=== PATIENT | female | born 1965 | race Caucasian/White ===

== ENCOUNTER 2018-06-06 13:57 | Outpatient (CLI) | payer BC, SELFPAY ==
[2018-06-06 15:53] LABS: Anion Gap 6.8 mmol/L (3-11); BUN 22 mg/dL (7-18); CO2 29.2 mmol/L (21.0-32.0); CREATININE 0.67 mg/dL (0.55-1.02); Calcium 8.7 mg/dL (8.5-10.1); Chloride 90 mmol/L (98-107); Glucose 83 mg/dL (70-100); Magnesium 2.1 mg/dL (1.8-2.4); Potassium 4.9 mmol/L (3.5-5.1); Sodium 126 mmol/L (136-145)
== END 2018-06-06 14:17 ==
PROVIDERS: PCP Family Medicine; Visit Provider Family Medicine
DX: R25.2 Cramp and spasm (principal); E89.0 Postprocedural hypothyroidism; I10 Essential (primary) hypertension; R53.82 Chronic fatigue, unspecified; I42.9 Cardiomyopathy, unspecified
CPT/HCPCS: 36415; 80048; 83735; 84443

== ENCOUNTER 2018-07-14 03:00 | Outpatient (CLI) | payer BC, SELFPAY ==
--- NOTE | 2018-07-21 11:08 | HOLTER_ITS ---
DATE OF DICTATION: July 21, 2018 48-hour study Baseline rhythm sinus. Rare single PAC. No SVT or atrial fibrillation. Rare single PVC. No VT. No bradycardia. SYMPTONS: Palpitations noted three times during sinus rhythm 85-148 bpm. Average heart rate 65 bpm.
== END 2018-07-14 03:20 ==
PROVIDERS: PCP Family Medicine; Visit Provider Internal Medicine Cardiovascular Disease
DX: R00.2 Palpitations (principal); I50.9 Heart failure, unspecified; I49.1 Atrial premature depolarization; I49.3 Ventricular premature depolarization
CPT/HCPCS: 93225

== ENCOUNTER 2018-07-17 09:00 | Outpatient (CLI) | payer BC, SELFPAY | END 2018-07-17 09:20 | PROVIDERS: PCP Family Medicine; Visit Provider Internal Medicine Cardiovascular Disease | DX: R00.2 Palpitations (principal); I50.9 Heart failure, unspecified; I49.1 Atrial premature depolarization; I49.3 Ventricular premature depolarization | CPT/HCPCS: 93226 ==

== ENCOUNTER 2018-07-22 00:27 | Outpatient (CLI) | payer BC, SELFPAY ==
--- NOTE | 2018-07-22 14:00 | MERGE_ITS ---
*[facility]* *[facility]* [address] [place] [address] Date of study: 07/22/2018 Transthoracic Echocardiography M-mode, complete 2D, complete spectral Doppler, and color Doppler *STUDY CONCLUSIONS* Summary: 1. Left ventricle: The cavity size was normal. Systolic function was normal. The estimated ejection fraction was 55-60%. Moderate hypokinesis of the inferolateral and apical myocardium. Diastolic parameters were normal for age. There was no evidence of elevated ventricular filling pressure by Doppler parameters. 2. Mitral valve: There was mild regurgitation. 3. Right ventricle: The cavity size was normal. Wall thickness was normal. Systolic function was normal. 4. Atrial septum: No defect or patent foramen ovale was identified. 5. Tricuspid valve: There was mild-moderate regurgitation. 6. Pulmonary arteries: Pulmonary systolic pressure was in the range of 25mm Hg to 35mm Hg. 7. Inferior vena cava: The vessel was patent and normal in size. The respirophasic diameter changes were in the normal range (greater than or equal to 50%), consistent with normal central venous pressure. *PATIENT PRESENTATION* Height: 157.5cm ((62in) ) S/D Pressure: 102 / 60 Weight: 56.7kg ((124.7lb) ) BSA: 1.58m^2 Test start time: 02:10 PM. Test stop time: 03:00 PM. 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 This study was interpreted by [facility]. Pertinent images and digital data are archived for permanent storage and are available for subsequent review. Comparison was made to the study of 03/13/2017. Study status: Routine. Transthoracic echocardiography. M-mode, complete 2D, complete spectral Doppler, and color Doppler. A Transthoracic Echocardiogram was performed. Scanning was performed from the parasternal, apical, subcostal, and suprasternal notch acoustic windows. Images were obtained using an [id number] cardiac ultrasound machine. Image quality was good. Study completion: The patient tolerated the procedure well. History: PMH: CHF palpitations i50.9, r00.2. *CARDIAC ANATOMY* Left ventricle: The cavity size was normal. Systolic function was normal. The estimated ejection fraction was 55-60%. Regional wall motion abnormalities: Moderate hypokinesis of the inferolateral and apical myocardium. The tissue Doppler parameters were abnormal. Diastolic parameters were normal for age. There was no evidence of elevated ventricular filling pressure by Doppler parameters. Aortic valve: Trileaflet. Doppler: There was no stenosis. There was no regurgitation. VTI ratio of LVOT to aortic valve: 0.82. Valve area (VTI): 2.8cm^2. Indexed valve area (VTI): 1.8cm^2/m^2. Peak velocity ratio of LVOT to aortic valve: 0.75. Valve area (Vmax): 2.6cm^2. Indexed valve area (Vmax): 1.6cm^2/m^2. Mean velocity ratio of LVOT to aortic valve: 0.7. Valve area (Vmean): 2.4cm^2. Indexed valve area (Vmean): 1.5cm^2/m^2. Mean gradient (S): 4.6mm Hg. Peak gradient (S): 8.8mm Hg. Aorta: Aortic root: The aortic root was normal in size. Ascending aorta: The ascending aorta was normal in size. Mitral valve: Doppler: There was no evidence for stenosis. There was mild regurgitation. Valve area by pressure half-time: 3.2cm^2. Indexed valve area by pressure half-time: 2cm^2/m^2. Left atrium: The atrium was normal in size. Atrial septum: No defect or patent foramen ovale was identified. Right ventricle: The cavity size was normal. Wall thickness was normal. Systolic function was normal. Pulmonic valve: Doppler: There was no evidence for stenosis. There was mild regurgitation. Tricuspid valve: Doppler: There was mild-moderate regurgitation. Pulmonary artery: Poorly visualized. Pulmonary systolic pressure was in the range of 25mm Hg to 35mm Hg. Right atrium: The atrium was normal in size. Pericardium: There was no pericardial effusion. Systemic veins: Inferior vena cava: Well visualized. The vessel was patent and normal in size. The respirophasic diameter changes were in the normal range (greater than or equal to 50%), consistent with normal central venous pressure. Baseline ECG: Bradycardia. Measurements Left ventricle Value 03/13/2017 Reference LV ID, ED, PLAX 5.0 cm 4.3 3.5 - 6.0 LV ID, ES, PLAX 3.4 cm 3.7 2.1 - 4.0 LV PW thickness, ED, PLAX 1.1 cm 1.1 LV end-diastolic volume, 106 ml 87 1-p A2C LV ejection fraction, 1-p 52 % 50 A2C LV end-diastolic volume, 88 ml 95 1-p A4C LV ejection fraction, 1-p 52 % 42 A4C LV e', lateral 0.073 m/sec LV E/e', lateral 8 LV e', medial 0.049 m/sec LV E/e', medial 12 LV e', average 0.061 m/sec LV E/e', average 10 Ventricular septum Value 03/13/2017 Reference IVS thickness, ED, PLAX 1.1 cm 1.1 LVOT Value 03/13/2017 Reference LVOT ID, A-P 2.1 cm 2.1 LVOT area 3.5 cm^2 3.3 LVOT peak velocity, S 1.11 m/sec 1.08 LVOT mean velocity, S 0.71 m/sec LVOT VTI, S 22.1 cm 22.2 LVOT peak gradient, S 4.9 mm Hg LVOT mean gradient, S 2.4 mm Hg 2 Stroke volume (SV), LVOT 77 ml 77 DP Stroke index (SV/bsa), 49 ml/m^2 47 LVOT DP Aortic valve Value 03/13/2017 Reference Aortic valve peak 1.5 m/sec velocity, S Aortic valve mean 1.02 m/sec velocity, S Aortic valve VTI, S 27.0 cm Aortic mean gradient, S 4.6 mm Hg Aortic peak gradient, S 8.8 mm Hg VTI ratio, LVOT/AV 0.82 0.78 Aortic valve area, VTI 2.8 cm^2 2.6 Velocity ratio, peak, 0.75 LVOT/AV Aortic valve area, peak 2.6 cm^2 2.3 velocity Velocity ratio, mean, 0.7 LVOT/AV Aortic valve area, mean 2.4 cm^2 velocity Aortic valve area/bsa, 1.5 cm^2/m^2 mean velocity Aorta Value 03/13/2017 Reference Aortic root ID, ED 2.7 cm 2.8 Ascending aorta ID, A-P, S 3.1 cm 3.1 Left atrium Value 03/13/2017 Reference LA ID, A-P, ES 3.2 cm LA ID/bsa, A-P 2.0 cm/m^2 <=2.2 LA area, ES, A4C 17.5 cm^2 16 8.8 - 23.4 LA area, ES, A2C 18 cm^2 LA volume/bsa, ES, 1-p A4C 33 ml/m^2 27 LA volume, ES, 2-p 47 ml LA volume/bsa, ES, 2-p 29 ml/m^2 LA/aortic root ratio 1.19 1.25 Mitral valve Value 03/13/2017 Reference Mitral E-wave peak 0.58 m/sec 0.71 velocity Mitral A-wave peak 0.63 m/sec 0.65 velocity Mitral deceleration time (H) 237 ms 150 - 230 Mitral pressure half-time 69 ms 70 Mitral E/A ratio, peak 0.93 1.09 Mitral valve area, PHT, DP 3.2 cm^2 3.2 Pulmonary veins Value 03/13/2017 Reference Pulmonary vein peak 0.49 m/sec 0.84 velocity, S Pulmonary vein peak 0.43 m/sec 0.44 velocity, D Pulmonary vein velocity 1.14 1.9 ratio, peak, S/D Pulmonary vein A-wave 0.39 m/sec 0.29 reversal peak velocity Pulmonary vein A-wave 149 ms reversal duration Tricuspid valve Value 03/13/2017 Reference Tricuspid regurg peak 2.7 m/sec 2.8 velocity Tricuspid peak RV-RA 28.4 mm Hg 31.9 gradient Right atrium Value 03/13/2017 Reference RA area, ES, A4C 16.2 cm^2 17 8.3 - 19.5 Legend: (L) and (H) shakila values outside specified reference range. I have personally reviewed the images and have reviewed and edited the reported findings. Electronically signed by Bennie Limon MD 07/22/2018 16:07
[2018-07-22 17:07] LABS: Anion Gap 4.7 mmol/L (3-11); BUN 25 mg/dL (7-18); CO2 31.3 mmol/L (21.0-32.0); CREATININE 0.86 mg/dL (0.55-1.02); Chloride 97 mmol/L (98-107); Glucose 90 mg/dL (70-100); NT-proBNP 38 pg/mL; Potassium 5.1 mmol/L (3.5-5.1); Sodium 133 mmol/L (136-145)
== END 2018-07-22 00:47 ==
PROVIDERS: PCP Family Medicine; Visit Provider Internal Medicine Cardiovascular Disease
DX: I50.9 Heart failure, unspecified (principal); R00.2 Palpitations; I34.0 Nonrheumatic mitral (valve) insufficiency; I36.1 Nonrheumatic tricuspid (valve) insufficiency
CPT/HCPCS: 36415; 80048; 83880; 93306

== ENCOUNTER 2021-08-10 19:49 | Outpatient (REF) | payer BC, SELFPAY ==
[2021-08-10 19:31] LABS: Sodium, Urine 16 mmol/L
[2021-08-11 17:17] LABS: Osmolality, Urine 151 mOsm/kg (150-1,150)
== END 2021-08-10 19:50 | disposition home or self-care (01) ==
LOC: LBN 19:49
PROVIDERS: PCP Nurse Practitioner Family; Visit Provider Nurse Practitioner Family
DX: E87.1 Hypo-osmolality and hyponatremia (principal)
CPT/HCPCS: 83935; 84300

== ENCOUNTER 2021-08-15 00:46 | Outpatient (CLI) | payer BC, SELFPAY ==
--- NOTE | 2021-08-15 07:37 | DI.US_ITS ---
APPROVED REPORT EXAM: Comprehensive 2D, Doppler, and color-flow Echocardiogram Patient Location: Out-Patient [facility] Superintendent: Digna Rendon RDCS (AE) Indications: H/O Cardiomyopathy, Idiopathic Other Information Study Quality: Adequate Conclusion Normal left ventricular wall thickness and chamber size. Estimated ejection fraction is 50 to 55% wi th mild global hypokinesis Normal right ventricular size and systolic function Right atrium is normal in size. The left atrium is mildly dilated There are no structural valvular abnormalities Mild to moderate mitral and tricuspid regurgitation Estimated right ventricular systolic pressure is normal at 25 mmHg Wall motion Left Ventricle The left ventricle is normal size. Left ventricular systolic function is mildly decreased. There is n ormal left ventricular wall thickness. Mild global hypokinesis There is no ventricular septal defect visualized. LVEF is 50-55%. Right Ventricle Right ventricle is grossly normal in size. The right ventricular systolic function is normal. The RVS P is 24.9 mmHg. Atria Left atrium is mildly dilated. The right atrium size is normal. The interatrial septum is intact with no evidence for an atrial septal defect. Aortic Valve The aortic valve is normal in structure. Aortic valve is trileaflet. There is no aortic valvular sten osis. No aortic regurgitation is present. Mitral Valve The mitral valve is normal in structure. No evidence of mitral valve stenosis. Mild to moderate jhonny l regurgitation. Tricuspid Valve The tricuspid valve is normal in structure. There is no tricuspid valve stenosis. Mild to moderate tr icuspid regurgitation. Pulmonic Valve The pulmonary valve is normal in structure. There is no pulmonic valvular stenosis. Trace pulmonic re gurgitation. Great Vessels The aortic root is normal in size. The ascending aorta is normal in size.Aortic arch is normal in shena iber. The IVC collapses <50% with inspiration. Pericardium There is no pericardial effusion. 2D Dimensions IVSD d PLAX 0.98 cm F: 0.6-1.0 LV Vol A2C d MOD 92.0 mL LVPW d PLAX 0.98 cm F: 0.6 - 1.0 LV Vol A4C d MOD 107.9 mL LVID d PLAX 4.66 cm F: 3.8 - 5.2 LA vol/ BSA A2C s A-L 36.5 mL/m2 LVDs 3.45 cm F: 2.2 - 3.5 LA vol/ BSA A4C s A-L 31.8 mL/m2 Ao Root d 2.54 cm F: 2.7 - 3.3 LA Vol/ BSA Biplane s A-L 34.2 mL/m2 RA Area A4C 15.27 cm2 LA Area A4C s MOD 17.70 cm2 RA Vol/ BSA A4C s A-L 26.3 mL/m2 LA Area A2C s MOD 19.03 cm2 Ao Asc Diam d 3.20 cm F: 2.3 - 3.1 LV EF A4C MOD 50.4 % LV EF Teichholz 50.3 % LV EF A2C MOD 50.5 % LVEF (Ortiz's) 47.95 % F: 54 - 74 LV EF Biplane MOD 47.9 % LV Volume 80.86 mL F: 46 - 106 SV 47.92 mL LV Volume Index 50.22 mL/m2 F: 29 - 61 SV Index 29.63 mL/m2 LV Vol Biplane MOD 99.9 mL FS 25.45 % M-Mode TAPSE 2.23 cm (M/F) >1.7 LV Diastology MV E' medial 0.051 (>0.07 m/s) E/A Ratio 0.8 LV E/e MED 10.50 (<14) MV E Vmax 0.54 (0.4-1.3 m/s) MV E' lateral 0.081 (>0.1 m/s) MV A Vmax 0.65 (0.4-1.3 m/s) LV E/e LAT 6.65 (<14) MV E/A Ratio 0.80 MV E/E' medial 10.52 MV E/E' lateral 6.70 Aortic Valve LVOT Area 3.02 cm2 AoV Area Vmax 2.57 cm2 LVOT Vmax 1.16 m/s AoV Area/ BSA (Vmax) 1.59 cm2/m2 LVOT Mean Bhupendra. 0.73 m/s HAMZAH Mean Bhupendra. 2.25 cm2 LVOT Peak Grad 5.4 mmHg HAMZAH Mean Bhupendra. Index 1.39 cm2/m2 LVOT Mean Grad 2.5 mmHg LVOT VTI 0.233 m LVOT Diam s 1.95 cm AoV Vmax 1.37 m/s Velocity Ratio 0.84 AoV Mean Bhupendra. 0.98 m/s AoV Peak Grad 7.5 mmHg LVOT SV 70.32 mL AoV Mean Grad 4.2 mmHg AoV VTI 0.268 m AoV Area VTI 2.62 cm2 AoV Area/ BSA (VTI) 1.62 cm/m2 Mitral Valve MV DT 314 (160-240 msec) MR Vmax 4.28 m/s MV PHT 91 msec MR VTI 1.856 m MV Area PHT 2.42 cm2 MR Peak Grad 73.2 mmHg MV VTI 0.263 m MR Mean Grad 49.3 mmHg MV VTI Annulus 0.258 m MV Area VTI 2.63 (4.0-6.0 cm2) Pulmonary Valve PV Vmax 1.47 (0.5-1.5 m/s) RVOT Peak Gr. 1.38 mmHg PV Peak Grad 8.7 mmHg RVOT Mean Gr. 0.60 mmHg PV Mean Grad 4.2 mmHg RVOT VTI 0.115 m PV VTI 0.252 m RVOT Vmax 0.59 m/s Tricuspid Valve TR Peak Grad 16.8 mmHg TR Vmax 2.05 m/s RA Pressure 8.00 mmHg RVSP (TR) 24.9 mmHg
== END 2021-08-15 01:06 ==
PROVIDERS: PCP Nurse Practitioner Family; Visit Provider Nurse Practitioner Family
DX: I42.8 Other cardiomyopathies (principal); I34.0 Nonrheumatic mitral (valve) insufficiency
CPT/HCPCS: 93306

== ENCOUNTER 2021-08-31 02:16 | Outpatient (CLI) | payer BC, SELFPAY ==
[2021-08-31 17:00] LABS: Anion Gap 7.9 mmol/L (3-11); BUN 24 mg/dL (7-18); CO2 29.1 mmol/L (21.0-32.0); CREATININE 0.8 mg/dL (0.55-1.02); Chloride 100 mmol/L (98-107); Glucose 98 mg/dL (74-106); Potassium 4.6 mmol/L (3.5-5.1); Sodium 137 mmol/L (136-145)
== END 2021-08-31 02:17 | disposition home or self-care (01) ==
LOC: LBO 02:16
PROVIDERS: PCP Nurse Practitioner Family; Visit Provider Nurse Practitioner Family
DX: E87.1 Hypo-osmolality and hyponatremia (principal)
CPT/HCPCS: 36415; 80048

== ENCOUNTER 2021-09-29 09:44 | Outpatient (CLI) | payer BC, SELFPAY ==
--- NOTE | 2021-09-29 09:30 | RT.EKG_ITS ---
APPROVED REPORT Exam: Resting ECG Reason for Exam: cardiomyopathy Patient Location: O HR:65 bpm ECG Measurements Heart Rate 65 AXIS ID 150 P 53 QRSd 138 QRS 14 QT 423 T 96 QTc 440 Conclusion Sinus rhythm...normal P axis, V-rate 50- 99 Left bundle branch block...QRSd>120, broad/notched R
== END 2021-09-29 09:45 | disposition home or self-care (01) ==
LOC: DI.CARD 09:44
PROVIDERS: PCP Nurse Practitioner Family; Visit Provider Internal Medicine Cardiovascular Disease
DX: I42.8 Other cardiomyopathies (principal)
CPT/HCPCS: 93010

== ENCOUNTER 2022-06-21 10:15 | Day surgery (SDC) | payer BC, SELFPAY ==
--- NOTE | 2022-06-20 20:55 | W.PM.DSUDISC ---
Date of service: 06/21/22 Time of Service: 11:58 Discharge Plan Disposition Patient Disposition: Home Condition: Good Discharge Details Reason For Visit: screening colonoscopy Attending Provider: Johnathon Christian Primary Care Provider: Alannah Chaparro Home Meds and New Rx's Prescriptions: Continued loperamide [Imodium A-D] 2 mg tablet 2 mg PO DAILY MDD 8mg PRN (Reason: loose stool) Qty: 90 0RF Caltrate 600 plus D 600 mg-20 mcg (800 unit) tablet,chewable 1 tab PO DAILY lisinopril 5 mg tablet 5 mg PO DAILY Qty: 90 3RF doxepin 3 mg tablet 3 mg PO QHS Qty: 90 4RF Rx Instructions: Take 1 tablet once daily within 30 minutes of bedtime valacyclovir 500 mg tablet 500 mg PO BID PRN (Reason: herpes infection) Qty: 60 0RF Rx Instructions: Take 1 tablet twice a day for 3 days with each episode; start as soon as possible epinephrine 0.3 mg/0.3 mL auto-injector 0.3 mg IM Q5-15M PRN (Reason: hypersensitivity reaction) Qty: 2 0RF Rx Instructions: do not exceed 3 doses per episode clonazepam 0.5 mg tablet 0.5 mg PO DAILY PRN (Reason: anxiety) Qty: 15 0RF Discontinued polyethylene glycol 3350 17 gram/dose powder 238 g PO ONCE Qty: 238 0RF Rx Instructions: take per colonoscopy instructions bisacodyl [Dulcolax (bisacodyl)] 5 mg tablet,delayed release (DR/EC) 5 mg PO ONCE Qty: 4 0RF Rx Instructions: take per colonoscopy instructions Discharge Instructions Additional Instructions: 1. If tolerated, consume a soft, low fiber diet for 1-2 days. 2[address] Do not drive, drink alcohol, operate machinery, make critical decisions, or do activities that require coordination or balance for 24 hours. 3. Because air was put into your colon during the procedure, expelling air from your rectum (passing gas or farting) is normal. 4. You may not have a bowel movement for 1-3 days because of the colonoscopy prep. This is normal. 5. Go directly to the emergency room if you notice any of the following: Develop chills (warm to touch), or if you have a thermometer and your temperature is above 101 Difficulty breathing or difficultly swallowing Persistent vomiting Severe abdominal pain, other than gas cramps Severe chest pain Black, tarry stools Any bleeding ? exceeding one tablespoon 6. Call your physician if the site where your intravenous was started becomes red, swollen, painful, and warm to touch. 7. Your physician has reviewed your pre-procedure medications. Please continue to take those medications as previously ordered. You will be given specific information/education regarding any changes to your medications before leaving. Activity:: Activity as Tolerated Diet:: As Tolerated Discharge Orders Discharge Orders: Discharge Order (Routine); Ordered 06/20/22 Ordered By: Johnathon Christian DS: Diagnosis Discharge Diagnosis (1) Screening for colon cancer: Status: Acute Asessment and Plan: Whitney, we were able to complete colonoscopy today without any difficulty. I did not see any evidence of any polyps, or other abnormalities. You should have another colonoscopy in 10 years to reduce your chances of from colon cancer.
--- NOTE | 2022-06-20 20:57 | W.COLOREPORT ---
Date of service: 06/21/22 Time of Service: 12:00 Colonoscopy Report Date of procedure: 06/21/22 Pre-op diagnosis general: Screening colonoscopy Post-op diagnosis procedure note: same Procedure: Colonoscopy Surgeon: Johnathon Christian Anesthesia Type: General:No Airway Estimated blood loss (mL): 0 Pathology: none sent Complications: None Disposition: same day Indications: Whitney is a 56-year-old woman who was undergone screening colonoscopy in the past. She had a polyp. She is here for follow-up screening colonoscopy as part of routine health maintenance. Prep: Miralax/Dulcolax Procedure Start Time: 11:28 Procedure End Time: 11:46 Retraction Time: 15 Findings: Normal colon Procedure Description: After the induction of monitored anesthetic care, and with the patient in left lateral decubitus position, I began by performing an external anorectal exam.? Perineum and skin were normal, as was the anal verge.? There was no evidence of external hemorrhoids.? Next, I performed a digital rectal exam.? I did not appreciate any abnormal findings.? Next, I advanced a colonoscope into the rectal vault.? I performed retroflexion.? This was normal.? Using insufflation, I then advanced the colonoscope beyond the rectal folds and into the sigmoid colon before advancing towards the cecum.? The quality of the prep was adequate.? The scope was noted to be in the cecum by identification of the ileocecal valve and appendiceal orifice.? I then began withdrawing the colonoscope using repeated irrigation as necessary for full evaluation of the colonic mucosa. ?Once the scope was withdrawn to the level of the rectum, great care was taken to examine portions of the rectal folds.? I did not see any evidence of polyps, cancers, or any other abnormalities. Finally, the scope was withdrawn and the patient was brought to the same-day surgery recovery unit as the anesthetic wore off. ?The findings and instructions were shared with the patient prior to discharge.
[2022-06-21 10:45] VITALS: BP 138/71; PULSE 65; RESP 16; TEMP 37; O2SAT 98
--- NOTE | 2022-06-21 10:55 | W.ANESPRE ---
General Info Date of Service Date Performed: 06/21/22 Height: 5 ft 2 in Weight: 61.5 kg Body Mass Index (BMI): 24.7 Surgical Procedure: Operation Date: 06/21/22 12:05 Proposed Procedure Side Surgeon arelis Christian MD Meds Allergies and Home Medications Allergies Allergy/AdvReac Type Severity Reaction Status Date / Time venom-honey bee Allergy Severe Anaphylaxis Unverified 06/21/22 10:48 Home Medication Medication Instructions Recorded doxepin 3 mg tablet 3 mg PO QHS #90 tabs 03/29/21 valacyclovir 500 mg tablet 500 mg PO BID PRN herpes infection 05/24/21 #60 tabs loperamide 2 mg tablet (Imodium 2 mg PO DAILY PRN loose stool #90 07/12/21 A-D) tabs lisinopril 5 mg tablet 5 mg PO DAILY #90 tabs 09/29/21 epinephrine 0.3 mg/0.3 mL 0.3 mg (0.3 mL) IM Q5-15M PRN 12/14/21 injection, auto-injector hypersensitivity reaction #2 ea calcium carbonate 600 mg-vitamin 1 tab PO DAILY 03/22/22 D3 20 mcg (800 unit) chewable tablet (Caltrate 600 plus D) clonazepam 0.5 mg tablet 0.5 mg PO DAILY PRN anxiety #15 05/16/22 tabs Current Visit Medications: Current Medications Generic Name Dose Route Start Last Admin Trade Name Freq PRN Reason Stop Dose Admin Hyoscyamine Sulfate 0.125 mg 06/20/22 20:58 Hyoscyamine 0.125 Mg Sl/Oral/Chew SL DIRECTED PRN Ringer's Solution 1,000 mls @ 80 mls/hr 06/21/22 06:00 IV 07/20/22 23:59 INFUSION ISSAC IV Miscellaneous Supplies 1 each 06/21/22 06:00 Iv Access IV 07/20/22 23:59 DIRECTED ISSAC Ondansetron HCl 4 mg 06/20/22 20:58 Ondansetron 4 Mg/2 Ml Vial IVP Q4H PRN PRN Nausea / Vomiting Sodium Chloride 0 ml 06/21/22 06:00 Normal Saline Flush 10 Ml Syr IV 07/20/22 23:59 PRN PRN Sodium Chloride 0 ml 06/21/22 06:00 Normal Saline 10 Ml Vial IJ 07/20/22 23:59 DIRECTED PRN Sterile Water 0 ml 06/21/22 06:00 Water,Injection,Sterile 10 Ml Vial IJ 07/20/22 23:59 DIRECTED PRN PFSH Active Problems Active Problems: Problem Status Onset Code Depressive disorder F32.9 Raynaud phenomenon I73.00 Idiopathic cardiomyopathy I42.8 Irritable bowel syndrome K58.9 Generalized anxiety disorder F41.1 Alcohol use disorder Genital herpes A60.00 Chronic hyponatremia E87.1 Medical History Medical History COVID-19 (~07/13/21) Also in May 2021 Gastroesophageal reflux disease LBBB (left bundle branch block) chronic Surgical History Surgical History History of esophagogastroduodenoscopy (EGD) (04/22/12) S/P colonoscopy (04/22/12) S/P ORIF (open reduction internal fixation) fracture (~07/2010) Left distal radius Tobacco Smoking/Tobacco Use Status: Former Tobacco Use Passive smoking exposure: Yes (As a child) Alcohol Alcohol Intake: current Alcohol intake frequency: a few times a week Alcohol type: beer Details: 3+ Drinks/night on the weekends Substance Use Substance use: Never Substance use type: does not use Vital Signs and Lab Results Vital Signs Most Recent Vital Signs in EMR: Most Recent Vital Signs Temp Pulse Resp BP Pulse Ox 37 C 65 16 138/71 98 06/21/22 10:45 06/21/22 10:45 06/21/22 10:45 06/21/22 10:45 06/21/22 10:45 Lab Results Blood Type / Crossmatch: No Data to Display Complete Blood Count: No Data to Display Complete Metabolic Panel: No Data to Display Liver Function Panel: No Data to Display Coagulation Panel: No Data to Display Cardiac Panel: No Data to Display Arterial Blood Gas: No Data to Display Venous Blood Gas: No Data to Display Pancreas Panel: No Data to Display Thyroid Panel: No Data to Display Infectious Disease: No Data to Display Blood Cultures: No Data to Display Toxicology Panel: No Data to Display Imaging and Studies Imaging and Studies Study information below may be from another EMR and interpreted by another provider. Please see original notes in EMR for more complete details. EKG Summary: 09/29/21 Conclusion Sinus rhythm...normal P axis, V-rate 50- 99 Left bundle branch block...QRSd>120, broad/notched R Stress Test Summary: 10/09 Impressions: Abnormal study after pharmacologic stress. Summary: 1. Myocardial perfusion imaging: There is a mildly intense, fixed defect involving the septal wall(s). This can also be seen with left bundle branch block. 2. The calculated left ventricular ejection fraction after stress: 51%. LV global systolic function is low normal. No left ventricular regional motion abnormality. 3. Baseline ECG: Normal sinus rhythm with left bundle branch block. 4. Imaging information: gated. The image quality was suboptimal. Echocardiogram Summary: 08/15 Normal left ventricular wall thickness and chamber size. Estimated ejection fraction is 50 to 55% with mild global hypokinesis Normal right ventricular size and systolic function Right atrium is normal in size. The left atrium is mildly dilated There are no structural valvular abnormalities Mild to moderate mitral and tricuspid regurgitation Estimated right ventricular systolic pressure is normal at 25 mmHg Wall motion Anesthesia Assessment and Plan Anesthesia History Personal History: No History of Anesthesia Complications Family History: No Family History of Anesthesia Complications Exercise Tolerance Exercise Tolerance: Metabolic Equivalents>4 Cardiac & Pulmonary Exam Cardiac Exam: Normal S1/S2 Heart Sounds Pulmonary Exam: Clear Bilateral Breath Sounds Implantable Cardiac Device Does patient have a Pacemaker or an ICD?: No Airway Exam Known Difficult Airway: No Mallampati Class: 2 Mouth Opening: Normal (> 3cm) Thyromental Distance: Greater than 3 cm Neck Range of Motion: Full ROM Neck Circumference: Normal Teeth Condition: Normal Dentition ASA Classification ASA Score: ASA 3 Emergency Case?: No NPO Status NPO Status: NPO Clears >2 hours, Solids >8 hours Anesthesia Plan Resuscitation Status: Full Code Anesthesia Technique: General Anesthesia Airway Planned: Natural Airway Monitors Used: Standard Monitors
[2022-06-21 11:05] VITALS: BMI 24.7
[2022-06-21] MEDS: Lactated Ringers 1,000 ML 80 ML IV (11:10)
[2022-06-21 11:55] VITALS: BP 96/52; PULSE 64; RESP 16; TEMP 36.3; O2SAT 98
--- NOTE | 2022-06-21 12:25 | W.ANESPOSTOP ---
Postoperative Evaluation Date, Time and Location Date Performed: 06/21/22 Time Performed: 11:55 Patient Location: Day Surgery Unit Vital Signs Most Recent Imported Vital Signs: Most Recent Vital Signs Temp Pulse Resp BP Pulse Ox 36.3 C L 64 16 96/52 L 98 06/21/22 11:55 06/21/22 11:55 06/21/22 11:55 06/21/22 11:55 06/21/22 11:55 Pain Score Most Recent Pain Score: Most Recent Pain Score Pain Level 0 06/21/22 11:55 Assessment Mental Status: Awake (Alert & Oriented to Patient Baseline) Airway and Respiratory Function: Patent airway with normal (patient baseline) respiratory exam Cardiovascular Function: Hemodynamically Stable Hydration Status: Adequately Hydrated Nausea & Vomiting: No Nausea or Vomiting Pain: Pt. Denies Any Pain Peripheral Nerve Block: Patient did not receive a nerve block
[2022-06-21 12:30] VITALS: BP 100/67; PULSE 53; RESP 18; TEMP 36.2; O2SAT 96
== END 2022-06-21 12:50 | disposition home or self-care (01) ==
PROVIDERS: PCP Nurse Practitioner Family; Visit Provider Surgery
PROC: 0DJD8ZZ Inspection of Lower Intestinal Tract, Via Natural or Artificial Opening Endoscopic (ICD-10-PCS; CPT 45378; principal; 2022-06-21 12:00)
DX: Z12.11 Encounter for screening for malignant neoplasm of colon (principal); Z86.010 Personal history of colon polyps
CPT/HCPCS: 45378; J2704

== ENCOUNTER 2022-07-25 02:52 | Outpatient (CLI) | payer BC, SELFPAY ==
[2022-07-25 13:26] LABS: Anion Gap 5.1 mmol/L (3-11); BUN 14 mg/dL (7-18); CO2 31.9 mmol/L (21.0-32.0); CREATININE 0.7 mg/dL (0.55-1.02); Chloride 101 mmol/L (98-107); Estimated GFR 100.19 (mL/min/1.73m2); Glucose 94 mg/dL (74-106); Potassium 3.8 mmol/L (3.5-5.1); Sodium 138 mmol/L (136-145)
== END 2022-07-25 02:53 | disposition home or self-care (01) ==
PROVIDERS: PCP Nurse Practitioner Family; Visit Provider Nurse Practitioner Family
DX: I42.8 Other cardiomyopathies (principal)
CPT/HCPCS: 36415; 80048

== ENCOUNTER 2022-10-05 12:58 | Outpatient (RCR) | payer BC, SELFPAY ==
--- NOTE | 2022-10-05 13:00 | HOLTER_ITS ---
APPROVED REPORT Conclusion This is a 48-hour Holter monitor ordered for palpitations Rhythm throughout is sinus with an average heart rate of 69. Minimum was 53, maximum 104 There were very rare isolated atrial and ventricular ectopic beats. A total of 9 PVCs and 10 PACs we re documented There was no atrial fibrillation, no SVT, no high-grade AV block, no pauses greater than 3 seconds
== END 2022-10-24 23:59 | disposition home or self-care (01) ==
LOC: CARDOPNVT 12:58
PROVIDERS: PCP Nurse Practitioner Family; Visit Provider Internal Medicine Cardiovascular Disease
DX: R00.2 Palpitations (principal)
CPT/HCPCS: 93225; 93226

== ENCOUNTER → 2023-04-10 13:06 | Outpatient (CLI) | payer BC, SELFPAY ==
--- NOTE | 2023-04-10 09:03 | DI.RAD_ITS ---
Exam(s) XR HIP RT COMPLETE AP PELVIS EXAM: XR HIP RT COMPLETE AP PELVIS CLINICAL HISTORY: Right hip pain, acute, M25.551. TECHNIQUE: 2D digital imaging was performed. COMPARISON: No exams were available for comparison FINDINGS: Two views. No evidence of pelvic nor hip fracture. No degenerative changes. Additional lateral view of the rig ht hip does not reveal osteophytes nor fracture of the femoral neck nor joint space narrowing. No os seous lesion IMPRESSION: No significant osseous findings in the pelvis and hips. DATA REPOSITORY: RADIATION DOSE DELIVERED:
--- OUTSIDE RECORDS SUMMARY | 2023-04-10 13:07 | XMS_ITS | Continuity of Care Document ---
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 Name Role Phone Alannah Chaparro Primary Care Physician Hosea Jaramillo Primary Care Physician Encounter [facility] Date(s): 08/08/22 - 08/08/[address] [address] Encounter Diagnosis Screening for breast cancer(Discharge Diagnosis) - 08/08/22 Discharge Disposition: Home or Self Care Attending Physician: Hosea Jaramillo MD Admitting Physician: Hosea Jaramillo MD Referring Physician: Hosea Jaramillo MD Allergies, Adverse Reactions, Alerts No Known Medication Allergies Substance Reaction Severity Status Bees/Stinging Insects Tongue swelling Hives Severe Active Assessment and Plan Future Appointments Immunizations Given and Recorded Vaccine Date Status Refusal Reason tetanus-diphth toxoids (Td) adult/adol 05/27/00 Re corded rubella virus vaccine 05/27/00 Recorded varicella virus vaccine 05/27/00 Recorded Medications clonazePAM 0.5 mg oral tablet 1 tab, Oral, every night at bedtime, 0 Refill(s) Start Date: 10/11/21 Status: Ordered clotrimazole 1% topical cream 0 Refill(s) Start Date: 10/11/21 Status: Ordered EPINEPHrine 0.3 mg injectable kit 0 Refill(s) Start Date: 10/11/21 Status: Ordered lisinopril 5 mg oral tablet 0 Refill(s) Start Date: 10/11/21 Status: Ordered Valtrex 500 mg oral tablet 1 tab, Oral, BID, 3 days, 0 Refill(s) Start Date: 10/11/21 Status: Ordered Problem List Condition Confirmation Course Effective Dates Status H ealth Status Informant Acne Confirmed Active Chest pain Confirmed Active Depressive disorder Confirmed Active Diaphragmatic hernia Confirmed Active Gastroesophageal reflux disease Confirmed Active Generalized anxiety disorder Confirmed Active Genital herpes in women Confirmed Active Hypertrophy of vulva Confirmed Active Irritable bowel syndrome Confirmed Active Palpitations Confirmed Active Sleep disorder Confirmed Active Procedures Procedure Date Related Diagnosis Body Site Status Pap smear and HPV cotesting 1 10/11/20 Completed Tension-Free vaginal tape 01/05/07 Completed ORIF distal radius Comple jose r 1Pap Due 09/2025 08/15/2016 Neg/Neg 10/12/2020 Neg/Neg Social History Social History Type Response Smoking Status Smoking tobacco use: Former tobacco user;Never entered on: 10/12/21 Sex Female Patient Care team information Care Team Personnel Name: Alannah Chaparro NP Position: No Access Member Role: Primary Care Physician Address: Address: [address] Name: Hosea Jaramillo MD Position: Physician - Women's Health Member Role: Primary Care Physician Address: Address: [address] Care Team Related Persons Name: TAHIRA HOU Address: Home
== END ==
PROVIDERS: PCP Nurse Practitioner Family; Visit Provider Nurse Practitioner Family
DX: M25.551 Pain in right hip (principal)
CPT/HCPCS: 73502

== ENCOUNTER → 2023-06-05 01:02 | Outpatient (CLI) | payer BC, SELFPAY ==
--- NOTE | 2023-06-05 07:45 | DI.MRI_ITS ---
Exam(s) MR LOWER JOINT RT WO EXAM: MR LOWER JOINT RT WO CLINICAL HISTORY: Right hip pain,m25.551 TECHNIQUE: Multiplanar multisequence MRI of right hip was performed COMPARISON: CR XR HIP RT COMPLETE AP PELVIS from 04/10/2023 FINDINGS: Bones: There is no evidence of a fracture or avascular necrosis. There is a small right hip joint e ffusion. There is mild nonspecific edema seen in the acetabulum and the lateral aspect of the right superior pubic ramus but no fracture is seen. There is mild thinning of the articular cartilage in t he hip joint. This may be all related to degenerative change. No bone marrow edema is seen. The SI joints and symphysis pubis are well maintained. There is an 8 mm subchondral cyst in the acetabular r gui. Musculotendinous structures: There is mild hyperintense signal seen lateral to the right greater tro chanter. It is associated with the gluteus medius muscle consistent with strain. Intrapelvic struct ures demonstrate no significant abnormality. IMPRESSION: 1. Right gluteus medius muscle strain. 2. Degenerative changes seen in the right hip. 3. Small right hip joint effusion. DATA REPOSITORY:
== END ==
PROVIDERS: PCP Nurse Practitioner Family; Visit Provider Nurse Practitioner Family
DX: M25.551 Pain in right hip (principal); M25.451 Effusion, right hip; M16.11 Unilateral primary osteoarthritis, right hip; S76.011A Strain of muscle, fascia and tendon of right hip, initial encounter
CPT/HCPCS: 73721

== ENCOUNTER 2023-08-01 03:39 | Outpatient (CLI) | payer BC, SELFPAY ==
[2023-08-01 07:18] LABS: Abs Immature Grans 0.01 10^3/uL (0.0-0.06); Absolute Basophil Count 0.02 10^3/uL (0.0-0.2); Absolute Eosinophil Count 0.08 10^3/uL (0.0-0.7); Absolute Lymphocyte Count 1.75 10^3/uL (1.2-3.4); Absolute Monocyte Count 0.39 10^3/uL (0.1-0.8); Absolute Neutrophil Count 1.52 10^3/uL (1.2-6.7); Basophils % 0.5; Eosinophils % 2.1; HCT 38.8 % (36.0-46.0); HGB 13.3 g/dL (11.2-15.7); Immature Grans % 0.3; Lymphocytes % 46.4; MCH 32.7 pg (27.0-33.0); MCHC 34.3 % (32.0-36.0); MCV 95 fL (80-95); MPV 8.1 fL (8.0-11.0); Monocytes % 10.3; Neutrophils % 40.4; Platelet Count 269 10^3/uL (130-400); RBC 4.07 10^6/uL (3.93-5.22); RDW-SD 42.1 fL; WBC 3.77 10^3/uL (4.4-10.8)
[2023-08-01 07:48] LABS: ALT 29 U/L (14-59); AST 35 U/L (15-37); Albumin 3.7 g/dL (3.4-5.0); Alkaline Phosphatase 75 U/L (46-116); Anion Gap 6.8 mmol/L (3-11); BUN 21 mg/dL (7-18); Bilirubin, Total 0.8 mg/dL (0.2-1.0); CO2 29.2 mmol/L (21.0-32.0); CREATININE 0.7 mg/dL (0.55-1.02); Calcium 9.4 mg/dL (8.5-10.1); Calculated LDL 120 mg/dL (<100); Chloride 96 mmol/L (98-107); Cholesterol 252 mg/dL (<200); Estimated GFR 99.57 (mL/min/1.73m2); Glucose 86 mg/dL (74-106); HDL Cholesterol 125 mg/dL (40-60); Potassium 4.3 mmol/L (3.5-5.1); Sodium 132 mmol/L (136-145); Total Protein 7.5 g/dL (6.4-8.2); Triglyceride 39 mg/dL (<150)
[2023-08-01 20:01] LABS: Hepatitis C Ab w Rflx HCV PCR Negative (Negative)
== END 2023-08-01 03:40 | disposition home or self-care (01) ==
PROVIDERS: PCP Nurse Practitioner Family; Visit Provider Nurse Practitioner Family
DX: Z00.00 Encounter for general adult medical examination without abnormal findings (principal)
CPT/HCPCS: 36415; 80053; 80061; 86803; 85025

== ENCOUNTER → 2023-08-07 14:10 | Outpatient (CLI) | payer BC, SELFPAY ==
--- NOTE | 2023-08-07 14:11 | DI.RAD_ITS ---
Exam(s) XR LUMBAR SPINE COMPLETE EXAM: XR LUMBAR SPINE COMPLETE CLINICAL HISTORY: LOW BACK PAIN M54.50. TECHNIQUE: 2D digital imaging was performed of the lumbar spine. Five images were obtained. AP, la teral, right oblique, left oblique and L5-S1 spot views were obtained. COMPARISON: No exams were available for comparison FINDINGS: BONES: No fracture or destructive lesion. There are endplate osteophytes seen at L3-4 and L4-L5. Ther e are degenerative changes seen in the facets in the lower lumbar spine. There is partial lumbarizat ion of S1. DISKS: Intervertebral disc spaces are maintained. ALIGNMENT: Lumbar spinal alignment is within normal limits. No spondylolysis or spondylolisthesis. SOFT TISSUE: Normal. IMPRESSION: Mild degenerative changes seen in the lumbar spine. DATA REPOSITORY: RADIATION DOSE DELIVERED:
== END ==
PROVIDERS: PCP Nurse Practitioner Family; Visit Provider Nurse Practitioner Family
DX: M51.36 Other intervertebral disc degeneration, lumbar region (principal)
CPT/HCPCS: 72110

== ENCOUNTER → 2023-08-12 03:03 | Outpatient (CLI) | payer BC, SELFPAY ==
--- NOTE | 2023-08-12 08:30 | DI.MRI_ITS ---
Exam(s) MR LUMBAR SPINE WO EXAM: MR LUMBAR SPINE WO CLINICAL HISTORY: DJD of spine, RLE radiculopathy,lumbar radiculopathy,m54.16. TECHNIQUE: Multiplanar multisequence MRI of the Lumbar spine was performed. COMPARISON: CR XR LUMBAR SPINE COMPLETE from 08/07/2023 FINDINGS: There is variant anatomy with partial lumbarization of S1. This makes numerical assignment of the cat tebral body somewhat tricky Conus medullaris is at normal level. There is no evidence of conus mass nor subjacent clumping of in trathecal nerve roots to suggest arachnoiditis. The distal thecal sac appears unremarkable.There is a Tarlov intra sacral cyst noted at S2 level which measures 1.1 by 1.0 cm. Bones:There is some variant marrow signal but no ominous bone lesions. No fractures nor listhesis. With respect to the individual levels... T12-L1: Unremarkable L1-2: Normal disc height and signal. No disc herniation nor central canal stenosis.No foraminal steno sis L2-3: Preserved disc height. Anterior osseous lipping. Posteriorly there is mild annular bulging bu t without a significant disc herniation. No central canal stenosis. No significant foraminal stenos is. No facet arthropathy. L3-4: This level exhibits moderate disc space narrowing. Mild symmetrical annular bulging without a significant focal disc herniation nor central canal stenosis. Central canal dimensions are lower nor mal. There is some annular bulging in the floor of the exiting neural foramina but no significant fo raminal stenosis on either side at this level. L4-5: Mild decreased disc height. There is annular bulging and a superimposed central disc herniatio n at this level which extends posteriorly 6 mm and is 2 cm wide. This indents the anterior aspect of the thecal sac. Extends into the floor of the exiting neural foramina bilaterally with mild foramin al stenosis evident on the left side and without foraminal stenosis on the right side. There are min imal if any significant degenerative change in the facet joints bilaterally at this level. L5-S1: Preserved disc height and signal. No disc herniation nor central canal stenosis at this level . Slight cystic configuration of the right nerve sheath at this level. No foraminal stenosis on eit her side. Minimal facet joint degenerative changes. Soft tissues: paraspinal soft tissues appear unremarkable. IMPRESSION: 1. There are multilevel disc findings as described individually above. 2. However, the most significant finding is a disc herniation as described above at what is named the L4-5 disc space for purposes of this study. This indents the thecal sac at this level with minimal canal stenosis. Annular bulging extends into the floor of the exiting neural foramina bilaterally at this level. There is mild foraminal stenosis on the left side and no foraminal stenosis on the righ t side. Please note that if this patient is ever to be a surgical candidate then close correlation of the rahul in films and the MRI by the surgeon is recommended given the variant anatomy here. This would be so as to avoid operating on the wrong level. 3. There are minimal facet joint degenerative changes in the lumbar spine. There is no prominent fac et arthropathy in the lumbosacral spinal canal. DATA REPOSITORY:
== END ==
PROVIDERS: PCP Nurse Practitioner Family; Visit Provider Nurse Practitioner Family
DX: M54.16 Radiculopathy, lumbar region (principal)
CPT/HCPCS: 72148

== ENCOUNTER 2023-09-06 08:00 | Outpatient (CLI) | payer BC, SELFPAY ==
--- NOTE | 2023-09-06 08:00 | RT.EKG_ITS ---
APPROVED REPORT Exam: Resting ECG Reason for Exam: Pre-op testing Patient Location: O HR:64 bpm ECG Measurements Heart Rate 64 AXIS VA 150 P 41 QRSd 146 QRS 23 QT 416 T 56 QTc 430 Conclusion Sinus rhythm...normal P axis, V-rate 50- 99 Left bundle branch block...QRSd>120, broad/notched R
== END 2023-09-06 08:01 | disposition home or self-care (01) ==
LOC: DI.CM 08:00
PROVIDERS: PCP Nurse Practitioner Family; Visit Provider Nurse Practitioner Family
DX: Z01.818 Encounter for other preprocedural examination (principal)
CPT/HCPCS: 93010

== ENCOUNTER 2023-09-26 04:56 | Outpatient (CLI) | payer BC, SELFPAY ==
[2023-09-26 15:38] LABS: HCT 39.7 % (36.0-46.0); HGB 13.4 g/dL (11.2-15.7); MCH 32.6 pg (27.0-33.0); MCHC 33.8 % (32.0-36.0); MCV 97 fL (80-95); MPV 8.8 fL (8.0-11.0); Platelet Count 296 10^3/uL (130-400); RBC 4.11 10^6/uL (3.93-5.22); RDW 11.6 % (11.7-14.6); RDW-SD 41.6 fL; WBC 4.28 10^3/uL (4.4-10.8)
[2023-09-26 15:59] LABS: Anion Gap 7.1 mmol/L (3-11); BUN 16 mg/dL (7-18); CO2 28.9 mmol/L (21.0-32.0); CREATININE 0.7 mg/dL (0.55-1.02); Chloride 95 mmol/L (98-107); Estimated GFR 99.57 (mL/min/1.73m2); Glucose 92 mg/dL (74-106); Potassium 4.5 mmol/L (3.5-5.1); Sodium 131 mmol/L (136-145)
== END 2023-09-26 04:57 | disposition home or self-care (01) ==
LOC: LBO 04:56
PROVIDERS: PCP Nurse Practitioner Family; Visit Provider Student in an Organized Health Care Education/Training Program
DX: M16.11 Unilateral primary osteoarthritis, right hip (principal); Z01.818 Encounter for other preprocedural examination
CPT/HCPCS: 36415; 80048; 85027

== ENCOUNTER 2023-09-26 15:53 | Outpatient (CLI) | payer BC, SELFPAY ==
--- NOTE | 2023-09-26 14:32 | DI.RAD_ITS ---
Exam(s) XR PELVIS AP EXAM: XR PELVIS AP CLINICAL HISTORY: R KANDICE Planning. TECHNIQUE: 2D digital imaging was performed. Single AP view. COMPARISON: CR XR HIP RT COMPLETE AP PELVIS from 04/10/2023 FINDINGS: BONES: No acute fracture is present. No bony destructive lesion is seen. JOINTS: Moderate narrowing of the right hip joint space and periarticular spurring. Findings appear to have progressed from the prior exam. There is left acetabular spurring no significant joint space narrowing. The SI joints are unremarkable. There is partial sacralization of the left L5 transvers e process. No joint space narrowing is present. SOFT TISSUE: Normal. IMPRESSION: Moderate degenerative changes of the right hip. DATA REPOSITORY: RADIATION DOSE DELIVERED:
== END 2023-09-26 15:54 | disposition home or self-care (01) ==
LOC: DIORS 15:54
PROVIDERS: PCP Nurse Practitioner Family; Visit Provider Student in an Organized Health Care Education/Training Program
DX: M16.11 Unilateral primary osteoarthritis, right hip (principal)
CPT/HCPCS: 72170

== ENCOUNTER 2023-10-02 06:04 | Day surgery (SDC) | payer BC, SELFPAY ==
[2023-10-02] VITALS (17 sets, daily range): BP systolic 88–147; BP diastolic 49–89; PULSE 65–132; RESP 11–22; TEMP 36.5–36.7; O2SAT 93–100; BMI 25.7
[2023-10-02] MEDS: Celecoxib 200 MG CAP 400 MG PO (06:28)
[2023-10-02] MEDS: Acetaminophen 500 MG TAB 1000 MG PO (06:29)
[2023-10-02] MEDS: Lactated Ringers 1,000 ML 80 ML IV ×2 (06:42→12:23)
--- NOTE | 2023-10-02 06:45 | DI.RAD_ITS ---
Exam(s) XR HIP RT IN OR EXAM: XR HIP RT IN OR CLINICAL HISTORY: Degenerative joint disease of right hip TECHNIQUE: 2D and realtime digital imaging was performed. CONTRAST MATERIAL: Refer to procedure report. COMPARISON: CR XR PELVIS AP from 09/26/2023 FINDINGS: Fluoroscopy was provided for Dr. Strickland during the performance of a right total hip replacement. Please refer to the procedure report for complete details. Ka,r=2.89 mGy IMPRESSION: RADIATION DOSE DELIVERED: 0.0 1271.9 0
--- NOTE | 2023-10-02 07:11 | W.PM.DSUDISC ---
Date of service: 10/02/23 Time of Service: 07:12 Discharge Plan Disposition Patient Disposition: Home Condition: Good Discharge Details Reason For Visit: R THR Attending Provider: Gumaro Strickland Primary Care Provider: Alannah Chaparro Home Meds and New Rx's Prescriptions: New acetaminophen 500 mg tablet 1,000 mg PO TID Qty: 90 3RF aspirin 81 mg tablet,delayed release (DR/EC) 81 mg PO BID Qty: 60 0RF celecoxib 200 mg capsule 200 mg PO BID Qty: 60 0RF pantoprazole 40 mg tablet,delayed release (DR/EC) 40 mg PO DAILY Qty: 30 0RF dexamethasone 4 mg tablet 4 mg PO DAILY Qty: 2 0RF oxycodone 5 mg tablet 5 mg PO Q4H MDD 6 tabs PRN (Reason: pain) Qty: 20 0RF Continued triamcinolone acetonide 0.1 % cream 1 applic topical BID Qty: 80 0RF paroxetine HCl 10 mg tablet 10 mg PO DAILY Qty: 90 0RF Hold Instructions: Hasn't started yet, waiting till after hip surgery loperamide [Imodium A-D] 2 mg tablet 2 mg PO DAILY MDD 8mg PRN (Reason: loose stool) Qty: 90 0RF Caltrate 600 plus D 600 mg-20 mcg (800 unit) tablet,chewable 1 tab PO DAILY valacyclovir 500 mg tablet 500 mg PO BID PRN (Reason: herpes infection) Qty: 60 0RF Rx Instructions: Take 1 tablet twice a day for 3 days with each episode; start as soon as possible clotrimazole 1 % cream 1 applic TP BID PRN (Reason: rash) Qty: 45 0RF Rx Instructions: Apply small amount to affected areas twice a day as needed for rash biotin 10,000 mcg capsule 10,000 mcg PO DAILY doxepin 3 mg tablet 3 mg PO QHS Qty: 90 3RF Rx Instructions: Take 1 tablet once daily within 30 minutes of bedtime clonazepam 0.5 mg tablet 0.5 mg PO DAILY PRN (Reason: anxiety) Qty: 15 0RF lisinopril 5 mg tablet 5 mg PO DAILY Qty: 90 3RF epinephrine 0.3 mg/0.3 mL auto-injector 0.3 ml IM Q5-15M PRN (Reason: hypersensitivity reaction) Qty: 2 4RF Rx Instructions: Report to ED if used Discharge Instructions Additional Instructions: Total Hip Discharge Instructions Activity: The most important activity is to walk. You should try to take short walks a few times a day. You have no restrictions on movement or positioning, but do not try to force what you do. You will find some stiffness and weakness with hip flexion (lifting your knee). Do not try to strengthen this too early, continue to practice walking and stairs and this will come. - Outpatient physical therapy can be helpful to help return you to a normal gait and improve your flexibility and strength. This can start around 2 weeks. For some patients, it?s not necessary. Usually this is determined at the time of discharge or at the first post-operative visit. - You should wear the AJSWANT hose on both legs for 2 weeks. Dressing: Keep the surgical dressing in place for at least one week. After the first week it may be removed and replace with light gauze and tape or nothing. It may get wet after 3 days but avoid soaking the dressing. If it gets wet, just lightly pat dry. It is important to always keep some gauze between skin folds, especially when you are sitting. Spend some time with the wound exposed when you are lying flat as the incision does wrinkle onto itself. Medications: - You should take Tylenol and an anti-inflammatory Celebrex as your primary pain control medications. If the Celebrex is too expensive or not covered, please call the office for another alternative (Advil/Ibuprofen or Naproxen/Aleve). - You have been prescribed a stronger pain medication Oxycodone for breakthrough pain, take as needed as prescribed. - You have also been prescribed a stomach acid reduction agent Pantoprozole to help reduce stomach acid and reflux. - You have also been prescribed Decadron to help with post-operative nausea and pain. You will take this for two days starting tomorrow. - You will be taking Aspirin 81mg twice a day for DVT prevention unless instructed otherwise. - If you have constipation you should take Colace or Miralax (both [id number]). It takes most people 3-4 days to have a bowel movement. Follow-up: 2 weeks If you have any acute concerns or questions, please do not hesitate to contact the office at [phone]. You may contact Dr. Strickland with any questions after hours through the hospital at [phone] or on his cell phone at [phone]. Referrals: Gumaro Strickland MD [ [facility] STAFF PHYSICIAN] - Equipment/Supplies: Walker Activity:: Activity as Tolerated Shower/Bathe:: 72 hours Diet:: As Tolerated Discharge Orders Discharge Orders: Discharge Order (Routine); Ordered 10/02/23 Ordered By: Miller Vo DS: Diagnosis Discharge Diagnosis (1) Degenerative joint disease of right hip: Status: Chronic
--- NOTE | 2023-10-02 07:17 | W.ANESPRE ---
General Info Date of Service Date Performed: 10/02/23 Height: 5 ft 2 in Weight: 63.7 kg Body Mass Index (BMI): 25.7 Surgical Procedure: Operation Date: 10/02/23 07:50 Proposed Procedure Side Surgeon p Hip Total Hip Anterior Right Gumaro Strickland MD Actual Procedure Side Surgeon p Hip Total Hip Anterior Right Gumaro Strickland MD Pre-Op Diagnosis Post-Op Diagnosis Degenerative joint disease of right hip Meds Allergies and Home Medications Allergies Allergy/AdvReac Type Severity Reaction Status Date / Time venom-honey bee Allergy Severe Anaphylaxis Verified 10/02/23 06:14 Home Medication Medication Instructions Recorded valacyclovir 500 mg tablet 500 mg PO BID PRN herpes infection 05/24/21 #60 tabs loperamide 2 mg tablet (Imodium 2 mg PO DAILY PRN loose stool #90 07/12/21 A-D) tabs calcium carbonate 600 mg-vitamin 1 tab PO DAILY 03/22/22 D3 20 mcg (800 unit) chewable tablet (Caltrate 600 plus D) clotrimazole 1 % topical cream 1 applic topical BID PRN rash #45 12/20/22 grams triamcinolone acetonide 0.1 % 1 applic topical BID #80 grams 05/08/23 topical cream biotin 10,000 mcg capsule 10,000 mcg PO DAILY 06/19/23 doxepin 3 mg tablet 3 mg PO QHS #90 tabs 07/03/23 paroxetine HCl 10 mg tablet 10 mg PO DAILY #90 tabs 08/07/23 clonazepam 0.5 mg tablet 0.5 mg PO DAILY PRN anxiety #15 08/21/23 tabs lisinopril 5 mg tablet 5 mg PO DAILY #90 tabs 08/21/23 acetaminophen 500 mg tablet 1,000 mg (2 x 500 mg) PO TID #90 10/02/23 tabs aspirin 81 mg tablet,delayed 81 mg PO BID #60 tabs 10/02/23 release celecoxib 200 mg capsule 200 mg PO BID #60 caps 10/02/23 dexamethasone 4 mg tablet 4 mg PO DAILY #2 tabs 10/02/23 epinephrine 0.3 mg/0.3 mL 0.3 ml IM Q5-15M PRN 10/02/23 injection, auto-injector hypersensitivity reaction #2 ea oxycodone 5 mg tablet 5 mg PO Q4H PRN pain #20 tabs 10/02/23 pantoprazole 40 mg tablet,delayed 40 mg PO DAILY #30 tabs 10/02/23 release Current Visit Medications: Current Medications Generic Name Dose Route Start Last Admin Trade Name Freq PRN Reason Stop Dose Admin Acetaminophen 1,000 mg 10/02/23 06:00 10/02/23 06:29 Acetaminophen 500 Mg Tab PO 10/02/23 23:59 1,000 mg PREOP ISSAC Administration Acetaminophen 1,000 mg 10/02/23 07:09 Acetaminophen 500 Mg Tab PO 11/01/23 07:08 TID PRN PRN Analgesia Celecoxib 400 mg 10/02/23 06:00 10/02/23 06:28 Celecoxib 200 Mg Cap PO 10/02/23 23:59 400 mg PREOP ISSAC Administration Docusate Sodium 100 mg 10/02/23 07:09 Docusate Sodium 100 Mg Cap PO 11/01/23 07:08 BID PRN PRN Constipation Ringer's Solution 1,000 mls @ 80 mls/hr 10/02/23 06:00 10/02/23 06:42 IV 10/31/23 23:59 80 mls/hr INFUSION ISSAC Administration Cefazolin Sodium/Dextrose 2 gm in 50 mls @ 100 mls/hr 10/02/23 06:00 Ancef Duplex IVPB 10/02/23 23:59 PREOP ISSAC Tranexamic Acid/Sodium Chloride 1,000 mg in 100 mls @ 600 mls/hr 10/02/23 06:00 IVPB 10/02/23 23:59 PREOP ISSAC IV Miscellaneous Supplies 1 each 10/02/23 06:00 Iv Access IV 10/31/23 23:59 DIRECTED ISSAC Ondansetron HCl 4 mg 10/02/23 07:09 Ondansetron 4 Mg/2 Ml Vial IVP 11/01/23 07:08 Q6H PRN PRN Nausea Oxycodone HCl 0 mg 10/02/23 07:09 Oxycodone 5 Mg Tab PO 11/01/23 07:08 Q3H PRN PRN Pain Polyethylene Glycol 17 gm 10/02/23 07:09 Polyethylene Glycol 3350 17 Gm Packet PO 11/01/23 07:08 BID PRN PRN Constipation Sodium Chloride 0 ml 10/02/23 06:00 Normal Saline Flush 10 Ml Syr IV 10/31/23 23:59 PRN PRN Sodium Chloride 0 ml 10/02/23 06:00 Normal Saline 10 Ml Vial IJ 10/31/23 23:59 DIRECTED PRN Sterile Water 0 ml 10/02/23 06:00 Water,Injection,Sterile 10 Ml Vial IJ 10/31/23 23:59 DIRECTED PRN PFSH Active Problems Active Problems: Problem Status Onset Code Idiopathic cardiomyopathy I42.8 SIADH (syndrome of inappropriate ADH production) E22.2 Major depressive disorder, recurrent F33.9 Generalized anxiety disorder F41.1 Insomnia G47.00 Hyperlipidemia E78.5 Degenerative joint disease of right hip M16.11 Raynaud phenomenon I73.00 Lumbar spondylosis M47.816 Irritable bowel syndrome K58.9 Genital herpes A60.00 Medical History Medical History LBBB (left bundle branch block) chronic Alcohol use disorder Gastroesophageal reflux disease Surgical History Surgical History History of esophagogastroduodenoscopy (EGD) (04/22/12) S/P colonoscopy (04/22/12) S/P ORIF (open reduction internal fixation) fracture (~07/2010) Left distal radius Tobacco Smoking/Tobacco Use Status: Former Tobacco Use Passive smoking exposure: Yes Second hand exposure: Yes Alcohol Alcohol Intake: current Alcohol intake frequency: a few times a week Alcohol type: beer Details: 3+ Drinks/night on the weekends Substance Use Substance use: Never Substance use type: does not use Vital Signs and Lab Results Vital Signs Most Recent Vital Signs in EMR: Most Recent Vital Signs Temp Pulse Resp BP Pulse Ox 36.6 C 71 16 145/79 H 100 10/02/23 06:16 10/02/23 06:16 10/02/23 06:16 10/02/23 06:16 10/02/23 06:16 Lab Results Blood Type / Crossmatch: No Data to Display Complete Blood Count: White Blood Count 4.28 10^3/uL (4.4-10.8) L 09/26/23 15:00 Red Blood Count 4.11 10^6/uL (3.93-5.22) 09/26/23 15:00 Hemoglobin 13.4 g/dL (11.2-15.7) 09/26/23 15:00 Hematocrit 39.7 % (36.0-46.0) 09/26/23 15:00 Platelet Count 296 10^3/uL (130-400) 09/26/23 15:00 Complete Metabolic Panel: Sodium 131 mmol/L (136-145) L 09/26/23 15:00 Potassium 4.5 mmol/L (3.5-5.1) 09/26/23 15:00 Chloride 95 mmol/L (98-107) L 09/26/23 15:00 Carbon Dioxide 28.9 mmol/L (21.0-32.0) 09/26/23 15:00 BUN 16 mg/dL (7-18) 09/26/23 15:00 Creatinine 0.7 mg/dL (0.55-1.02) 09/26/23 15:00 Est GFR (CKD-EPI 2020) 99.57 (mL/min/1.73m2) 09/26/23 15:00 Calcium 9.0 mg/dL (8.5-10.1) 09/26/23 15:00 Glucose 92 mg/dL (74-106) 09/26/23 15:00 Liver Function Panel: No Data to Display Coagulation Panel: No Data to Display Cardiac Panel: No Data to Display Arterial Blood Gas: No Data to Display Venous Blood Gas: No Data to Display Pancreas Panel: No Data to Display Thyroid Panel: No Data to Display Infectious Disease: No Data to Display Blood Cultures: No Data to Display Toxicology Panel: No Data to Display Imaging and Studies Imaging and Studies Study information below may be from another EMR and interpreted by another provider. Please see original notes in EMR for more complete details. EKG Summary: 09/29/21 Conclusion Sinus rhythm...normal P axis, V-rate 50- 99 Left bundle branch block...QRSd>120, broad/notched R Stress Test Summary: 10/09 Impressions: Abnormal study after pharmacologic stress. Summary: 1. Myocardial perfusion imaging: There is a mildly intense, fixed defect involving the septal wall(s). This can also be seen with left bundle branch block. 2. The calculated left ventricular ejection fraction after stress: 51%. LV global systolic function is low normal. No left ventricular regional motion abnormality. 3. Baseline ECG: Normal sinus rhythm with left bundle branch block. 4. Imaging information: gated. The image quality was suboptimal. Echocardiogram Summary: 08/15 Normal left ventricular wall thickness and chamber size. Estimated ejection fraction is 50 to 55% with mild global hypokinesis Normal right ventricular size and systolic function Right atrium is normal in size. The left atrium is mildly dilated There are no structural valvular abnormalities Mild to moderate mitral and tricuspid regurgitation Estimated right ventricular systolic pressure is normal at 25 mmHg Wall motion Anesthesia Assessment and Plan Anesthesia History Personal History: No History of Anesthesia Complications Family History: No Family History of Anesthesia Complications Exercise Tolerance Exercise Tolerance: Metabolic Equivalents>4 Pertinent Negatives Pertinent Negatives: No Symptoms of GERD Cardiac & Pulmonary Exam Cardiac Exam: Normal S1/S2 Heart Sounds Pulmonary Exam: Clear Bilateral Breath Sounds Implantable Cardiac Device Does patient have a Pacemaker or an ICD?: No Airway Exam Known Difficult Airway: No Mallampati Class: 2 Mouth Opening: Normal (> 3cm) Thyromental Distance: Greater than 3 cm Neck Range of Motion: Full ROM Neck Circumference: Normal Teeth Condition: Normal Dentition ASA Classification ASA Score: ASA 2 Emergency Case?: No NPO Status NPO Status: NPO Clears >2 hours, Solids >8 hours Anesthesia Plan Resuscitation Status: Full Code Anesthesia Technique: Spinal Anesthesia Airway Planned: Natural Airway Monitors Used: Standard Monitors
[2023-10-02] MEDS: ceFAZolin 2 GM/50 ML BAG IVPB (07:45)
[2023-10-02] MEDS: TRANEXAMIC ACID/SOD. CHL. 1,000 MG/100 ML BAG 600 MG IVPB (07:55)
--- NOTE | 2023-10-02 09:14 | ROE_ITS ---
Date of service: 10/02/23 Time of Service: 09:14 Operative Note Operative Note DATE OF PROCEDURE: 10/02/23 PRE-OP DIAGNOSIS: Right Hip Osteoarthritis POST-OP DIAGNOSIS: same PROCEDURE: Right Anterior Total Hip Arthroplasty with Intraoperative Navigation SURGEON: Gumaro Strickland QUALITY ASSURANCE AUDITOR: Miller Vo ANESTHESIA TYPE: Spinal Refer to Anesthesia Record ESTIMATED BLOOD LOSS: 500 PATHOLOGY: none sent TOURNIQUET TIME: 0 COMPLICATIONS: None Patient was transported to: PACU Patient's condition: stable Implants: 1. Depuy Chinle Acetabular Component, 48mm 2. Depuy Acetabular Liner, 32g26lv 3. Depuy Actis Standard Collared Femoral Stem, Size 4 4. Depuy Altrx Ceramic Femoral Head, Size 32+5mm Indications: I have seen Whitney in clinic for symptoms of hip arthritis, confirmed with radiographic findings. She has exhausted nonoperative methods and was having significant limitations in daily function and desired better function and less pain. I discussed the technical details of a hip replacement. I explained the risks of the procedure to include, but not limited to, bleeding, infection, pain, stiffness, fracture, damage to nerves and vessels, damage to muscles and tendons, loosening, instability, leg length inequality, need for repeat pro cedure, blood clot and cardiopulmonary demise. Despite these risks, Whitney elected to proceed. Findings: There was significant signs of arthritis throughout the hip with a notable effusion and two loose bodies. There was significant ooze from the cut bone of the femur and acetabulum. Procedure Description: Whitney was greeted in the preoperative holding area where the correct side was identified and marked. The consent was reviewed with the patient and signed. The history and physical was updated. All questions were answered. She was taken back to the operating room. A spinal anesthestic was then administered. The feet were wrapped with cast padding and Coban and then placed into the boot liners and then into the boots. Care was taken to protect the skin and make sure the heels were fully down and the boots were stable. The patient was then positioned onto the HANA table. Both legs were held in a neutral position. SCDs were applied. The patient was then slid down onto a peroneal post. Prophylactic antibiotics in the form of Cefazolin were administered. 1g of Tranxemic Acid was given intravenously within 30 minutes of incision. The right leg was then prepped with Chloraprep and draped in a standard fashion. A second prep with Chloraprep was performed prior to placeme nt of a shower-curtain type drape with Iodine impregnated skin protection. A timeout to confirm correct identity, side and site, procedure, allergies, anesthesia, and medical concerns was performed. An obliquely oriented incision was made starting lateral to the ASIS and running distal over the Tensor Fascia Ronel (TFL) muscle belly toward the fibular head, approximately 10cm. The skin and soft tissue was dissected sharply, through Abby?s fascia, and to the fascia of the TFL. With the fascia and superior border of the IT band identified, the fascia was incised with a new knife just above any perforators from the IT band. The TFL muscle belly was bluntly dissected away from the fascia and moved laterally. The fat between TFL and rectus was identified to ensure the dissection was not within the TFL. Blunt dissection created space between abductors and the capsule and retractor was placed over the lateral femoral neck. The fibers of the rectus femoris tendon were identified and these were freed from the anterior capsule. A second cobra retractor was placed around the medial femoral neck. The TFL was further retracted laterally to show the deep fascia. Careful dissection through this layer identified three main crossing vessels of the lateral femoral circumflex. These were cauterized in multiple locations and then cut without any noticeable bleeding. The TFL was further released bluntly from the deep fascia to expose anterior hip capsule and fat The Ananth orthopaedic retractor was then placed beneath the TFL and against sartorius and medial soft tissues to protect and retract the soft tissues. A T-capsulotomy was then performed starting at the superior lateral acetabulum and moving distally to the intertrochanteric ridge. These capsular flaps were tagged with a No. 1 Ethibond and elevated from within. The capsular flaps were released to the shoulder of the lateral neck and to the lesser trochanter to give excellent visualization of the proximal femur. A neck osteotomy was performed using an oscillating saw based on preoperative templates. This cut started in the shoulder and of the lateral neck and exited medially. The saw was at all times directed medially to avoid injury to the greater trochanter. Gross traction was applied to the leg and the osteotomy opened. The femoral head was removed with a corkscrew, making sure to protect the TFL on its exit. Traction was released after head removal. This was measured on the back table to determine the starting reamer size. Portions of the rectus obscuring visualization were minimally elevated off the superior acetabulum. An anterior retractor was placed over the anterior wall between capsule and labrum and attached to the Gripper retraction system. The femur was rotated to 90 degrees and medial capsule was fully released until the lesser trochanter was palpable and visible; the femur was returned to 30 degrees. A posterior retractor was placed similarly between capsule and labrum. This provided excellent visualization. The contents of the cotyloid fossa were removed with electrocautery and the labrum was removed with a knife. Acetabular reaming began with a 42mm reamer. This first reaming was directed anterior to posterior and medial to get down to the true floor. This was inspected and reamed until the true floor was reached. The anterior retractor was then released and entry and exit was provided by traction on the capsular flaps. I then reamed sequentially up to a 48mm reamer where good fit was obtained. The larger reamers were oriented based on anatomical reference of the anterior and lateral ojeda to ensure proper abduction and anteversion. Positioning and size was confirmed with the fluoroscopy. A 48mm Depuy Chinle acetabular component was selected. The acetabulum was reamed around the periphery with the selected acetabular size to prevent a rim fit. The deep tissues were irrigated. The acetabular component was then impacted in a position of about 40-45 degrees of abduction and 15-20 degrees of anteversion, using the patient?s anatomy as the ultimate landmark. Fluoroscopy was used to confirm this. There was excellent professor of spanish of the acetabular component and the inserting handle was removed. The acetabular liner, Depuy [id number] polyethylene liner, was inserted and lined up with the tines of the acetabular component. There was no soft tissue interposition. The liner was then impacted into position and confirmed to be well-seated. A portion of the pam-articular cocktail was then injected around the acetabulum into the capsule and periosteum. This cocktail consisted of 123mg of Ropivacaine, 0.25mg of Epinephrine, 0.04mg of Clonidine, and 15mg of Ketorolac, diluted to 50cc. The leg was rotated to 120 degrees. Any remaining medial capsule was released until the lesser trochanter was easily palpable. A retractor was placed medially. The lateral capsule was further released into the shoulder to allow access to the greater trochanter. A Elder retractor was placed over the greater trochanter which allowed the trochanter to flip in front of the capsule for excellent exposure. The leg was brought down into maximal extension and 20 degrees of adduction while ensuring there was no impingement on the acetabulum. Any remnant capsule within the trochanter was released. Piriformis and obturator externis were identified and protected. There was excellent access to the proximal femur. The lateral neck remnant was removed with a rongeur. A blunt canal probe was used to identify the canal and trajectory for later broaching. A box osteotome initiated the broach course. A small curved rasp and a curved curette were used to work laterally. Broaching then began with a starter Actis broach. This was inserted manually around the trochanter and into the canal before mallet blows. The broach was seated to the neck cut level based on the neck cut and the preoperative template. Sequential broaching was continued with the InnaVirVax pneumatic broaching device until a tight fit was obtained with good rotational control of the femur. A trial high offset neck was inserted along with a +1 trial head. The leg was brought out of extension and adduction and then reduced with traction and internal rotation. The leg was stable anteriorly in a position of 30 degrees of extension and 90 degrees of external rotation. Fluoroscopy was used to ensure there was no fracture and the stem was seated well. Leg lengths were checked with an AP pelvis and pelvic reference points. Taigen navigation system was used to confirm appropriate positioning and leg length and offset. This overcorrected offset and slightly undercorrected leg length. Once content with the desired offset and leg lengths, the leg was brought back into extension, external rotation and adduction. The periosteum and surrounding tissue was injected with remaining portion of the pam-articular cocktail. The proximal femur was irrigated as well as the deep tissues. The QRcaouy Actis standard collared stem, size 4, was then manually inserted into the proximal femur making sure to control rotation. It was then malleted into position with light blows, giving breaks to allow bone expansion and decrease risk of fracture. The selected Depuy Altrx Ceramic Head, size 32+5mm, was then placed onto the clean and dry trunnion and secured with impaction onto the tapered fit. The leg was brought back out of extension and adduction and reduced with traction and internal rotation. Stability was confirmed with no shuck at 90 d egrees of external rotation and 30 degrees of extension. No impingement through range of motion arc. Final x-ray images were obtained with fluoroscopy to confirm adequate positioning and no intraoperative fracture. There was more blood loss than expected due to persistent ooze from the acetabulum and the femur which was minimal after implantation of the components. The deep tissues were thoroughly irrigated with Surgiphor, betadine solution. This was allowed to sit in the wound for 3 minutes before being thoroughly irrigated out with normal saline. The capsule was then reapproximated with the previously placed Ethibond sutures. The TFL fascia was finally closed with a No. 2 Stratafix, barbed suture. Deep tissues were then reapproximated with 0 Vicryl and a running 2-0 Vicryl. The skin was closed with a running 4-0 Monocryl in a subcuticular fashion. This was reinforced with skin glue. A Mepilex silver dressing was applied. At the end of the case, all counts were correct. Whitney was transferred to the hospital bed without difficulty and suffering no apparent complication. Whitney has a good prognosis. Physical therapy will start today and without restrictions, weight-bearing as tolerated. Aspirin 81mg BID will be used for DVT prophylaxis.
[2023-10-02] MEDS: fentaNYL 100 MCG/2 ML VIAL IVP ×2 (09:33→09:48)
[2023-10-02] MEDS: oxyCODONE 5 MG TAB PO (10:57)
--- NOTE | 2023-10-02 11:20 | PT.INIE ---
PT Notes Visit Reasons: R THR Physical Therapy Day Surgery Initial Evaluation Date: 10/02/2023 Referring Doctor: Miller Vo MD PT Orders: PT CONSULT: S/P Ortho Surgery Precautions: WBAT on the R LE with AD. Patient Profile/Admitting Diagnosis: Patient is a 57-year-old female with degenerative joint disease of the right hip and status post right total hip arthroplasty on postoperative day 0. PMHX: All Active Problems Idiopathic cardiomyopathy (Chronic) SIADH (syndrome of inappropriate ADH production) (Chronic) [facility] [place] [place] Major depressive disorder, recurrent (Chronic) Generalized anxiety disorder (Chronic) Insomnia (Chronic) Hyperlipidemia (Chronic) Degenerative joint disease of right hip (Chronic) Intra-articular injection under ultrasound: 4Raynaud phenomenon (Chronic) Lumbar spondylosis (Chronic) With disc herniation. Conservative management advised by [facility] [place] Irritable bowel syndrome (Chronic) Genital herpes (Chronic) Medical History LBBB (left bundle branch block) chronic Alcohol use disorder Gastroesophageal reflux disease Surgical History History of esophagogastroduodenoscopy (EGD) (04/22/12) S/P colonoscopy (04/22/12) S/P ORIF (open reduction internal fixation) fracture (~07/2010) Left distal radius Social History/Home Situation: Lives with in a private home with 3 steps to enter with rail on R side going up. Daughter will be with patient for the first couple of nights to help out as needed. Independent with all aspects of ADLs prior to surgery although has had worsening pain due to arthritis. Equipment Owned/DME: FWW Subjective: Complained of being woozy, lightheadedness and seeing black when she sat up and stood up from edge of bed during the first attempt at mobility assessment. Wanted to void urine so badly. Patient was helped back onto bed by PT, Nurse Raymond, and Nurse Beckwith. During the second attempt, patient complained again of same symptoms after walking about 100 feet with FWW immediately prior to negotiating stairs. Verbalized that she was going to faint and so was advised to sit down on wheelchair instead. Deferred stairs training. Objective: General Observation: Mepilex Ag over surgcal incision. Mniimal swelling in pam-incision area and R lateral hip. Supine in bed. Daughter Rehana present in room. Gets pale in the lips with symptom occurrence. Mental Status: A and o x 4 Pain: 4/10 in the R hip ROM: Right Lower Extremity: Hip flexion WFL. Hip abduction WFL. Knee flexion WFL. Ankle dorsiflexion WFL. Ankle plantarflexion WFL. Left Lower Extremity: Hip flexion WFL. Hip abduction WFL. Knee flexion WFL. Ankle dorsiflexion WFL. Ankle plantarflexion WFL. Strength: Right Lower Extremity: Hip flexors 4/5. Hip abductors 4/5. Knee flexors 5/5. Knee extensors 4/5. Ankle dorsiflexors 5/5. Ankle plantarflexors 5/5. Left Lower Extremity:Hip flexors 5/5. Hip abductors 5/5. Knee flexors 5/5. Knee extensors 5/5. Ankle dorsiflexors 5/5. Ankle plantarflexors 5/5. Sensation: Intact as to pain and light pressure in B LE Bed Mobility/Transfers: Minimal cueing provided for use of B hands as needed for support, movement sequence, AD management, and posture to reduce fall risk and minimize pain report Supine to sit minimal assist Sit to stand minimal assist with FWW Stand to sit modertae assist Bed to chair minimal assist Chair to bed moderate assist of 2 during two attempts due hypotensive epsiodes Gait: Facilitated safe and correct performance of level surface ambulation covering a distance of 100 feet using front wheeled walker before patient complained of recurrence of worsening wooziness that required need to go back to bed to rest with BP softening down to 88 mmHg systolically. Stairs: Deferred Balance: Static Sitting: Normal Dynamic Sitting: Normal Static Standing: Fair Dynamic Standing: Fair Special Tests: Mobility Limitations Standardized Measure [facility] AM-PAC 6 clicks Basic Mobility Inpatient Short Form: Raw Score: 18 CMS Score: 47% deficit Informed Consent/Education: Patient instructed in purpose of PT consult. Packet containing KANDICE exercise protocol has been given to patient. Education and training on initial set of exercises that can be done at home will be completed with patient whne appropriate. ASSESSMENT: Patient with history of generalized anxiety disorder and depression. Two episodes of orthostatic hypotension accompanied with patient symptoms during two attempts at mobilization. Patient required the use of FWW and assistance of a caregiver for safety and fall reduction. Patient presents with clinical signs and symptoms consistent with current/admitting diagnoses that have resulted to mobility limitations, gait instability, generalized weakness, and impairment of motor control as demonstrated by the following impairment level findings: 1. Decreased strength to R hip major muscle groups 2. Impaired standing balance 3. Orthostatic hypotension 4. Anxious Impairments are contributing to the following functional limitations: 1. Inability to safely ambulate without assistive device 2. Increase completion time for mobility ADL performance 3. Increased fall risk Patient is assessed as a 29804 moderate complexity based on the following: History: 57-year-old female with impairment level findings, functional limitations, and past medical history as indicated above Examination: Demonstrable impairment in strength, balance, and mobility level with underlying impairments and functional limitations as documented above Presentation: Evolving Decision Makin moderate complexity Goals: If admitting to [facility], will aim for following goals: Goals X1 week 1. Supine-Sit independent 2. Sit-Supine independent 3. Sit-Stand independent 4. Stand-Sit independent 5. Bed-Chair independent 6. Chair-Bed independent 7. Independent gait on level surface with use of least restrictive device for at least 300 feet without report of pain nor dyspnea 8. Independent stair negotiation while holding onto bilateral rails for at least 10 steps without report of pain nor dyspnea 9. Independent with home exercise program 10. Good static and dynamic standing balance/tolerance Plan of Care/Treatment Plan: If admitting to [facility], will aim for following treatment plan Patient will highly benefit from skilled physical therapy services including functional mobility training, bed mobility/transfer training, gait and balance training, therapeutic exercises, therapeutic activity, caregiver/staff/family education and training 1x/day, 7 days/week x 1 week. Plan of care has been reviewed with the GRAPE PRUNER providing the service under Physical Therapy direction. Initiate Physical Therapy intervention for strengthening, bed mobility, transfers, gait, stairs, balance training, use of assistive device. DISCHARGE RECOMMENDATIONS: Admit to [facility] level of care as appropriate versus home health PT services in order to progress mobility level using least restrictive assistive ambulatory device, assess home safety, identify additional equipment needs, and establish a functional maintenance program that will increase ability of patient to remain at home. TREATMENT CODE/TIME: 31368 x 20 minutes for 1 unit, 06104 x 17 minutes for 1 unit (11:20-11:35 and 13:47-14:09). Thank you for the opportunity to participate in the care of this patient. Please sign an return this page within 30 days if you agree with the above POC. Thank you! Physician Signature Date [facility] Thank you for the opportunity to participate in the care of this patient. Ann Rainey PT, DPT, CLT [facility] [place], [place]
--- NOTE | 2023-10-02 13:44 | W.ANESPOSTOP ---
Postoperative Evaluation Date, Time and Location Date Performed: 10/02/23 Time Performed: 13:44 Patient Location: Day Surgery Unit Vital Signs Most Recent Imported Vital Signs: Most Recent Vital Signs Temp Pulse Resp BP Pulse Ox 36.7 C 89 16 133/85 99 10/02/23 10:41 10/02/23 12:17 10/02/23 12:05 10/02/23 12:17 10/02/23 12:05 Pain Score Most Recent Pain Score: Most Recent Pain Score Pain Level 5 10/02/23 10:41 Assessment Mental Status: Awake (Alert & Oriented to Patient Baseline) Airway and Respiratory Function: Patent airway with normal (patient baseline) respiratory exam Cardiovascular Function: Hemodynamically Stable Hydration Status: Adequately Hydrated Nausea & Vomiting: No Nausea or Vomiting Pain: Pt. Denies Any Pain Peripheral Nerve Block: Patient did not receive a nerve block
--- NOTE | 2023-10-02 14:16 | NUR.NOTE ---
1135: Lightheaded when standing with P.T. Orthostatic when standing 96/70 hr 123. Recovered in supine position. Remaining IV fluid infusing as bolus (approximately 300ml) NICKER AND BREAKER made aware via Webex. 1215: Improved orthostatic VS HR 115 118/89 standing after hr 89 147/79 sitting. States she feels better. Back to bed with HOB 45 degrees. Second LR infusing approx. 150 ml/hr. NICKER AND BREAKER updated via Webex. 1420: Up to BR to void with nurse, walker, and contact supervision. Assisted to recliner. P.T. in. Ambulated with P.T. and walker x100 feet. Became lightheaded with decreased BP and increased HR. Brought back to room in wheel chair. Near syncopal episode while transferring from chair to bed. BP 105/65 with HR 86. NICKER AND BREAKER notified via Webex and came to bedside. Dr. Strickland notified and in to evaluate. Returned to baseline. HR 81. 130/76. Nursing Note:
[2023-10-02] MEDS: diazePAM 2 MG TAB PO (14:50)
== END 2023-10-02 16:37 | disposition home or self-care (01) ==
PROVIDERS: PCP Nurse Practitioner Family; Visit Provider Student in an Organized Health Care Education/Training Program
PROC: (CPT 27130; principal; 2023-10-02 07:30)
DX: M16.11 Unilateral primary osteoarthritis, right hip (principal); M47.816 Spondylosis without myelopathy or radiculopathy, lumbar region; I73.00 Raynaud's syndrome without gangrene; E22.2 Syndrome of inappropriate secretion of antidiuretic hormone
CPT/HCPCS: 27130; 20985; 97110; 97162; 97530; 73501; C1776; J0690; J1100; J2001; J2250; J2371; J2401; J2405; J2704; J3010

== ENCOUNTER 2023-10-17 15:46 | Outpatient (CLI) | payer BC, SELFPAY ==
--- NOTE | 2023-10-17 11:35 | DI.RAD_ITS ---
Exam(s) XR HIP RT COMPLETE AP PELVIS EXAM: XR HIP RT COMPLETE AP PELVIS INDICATION: 1ST POST OP S/P R KANDICE. COMPARISON: CR XR PELVIS AP from 09/26/2023 XA XR HIP RT IN OR from 10/02/2023 TECHNIQUE: 2D digital imaging was performed. Two views. FINDINGS: There has been no change in the right hip prosthesis. There are no abnormal surrounding bony lucenci es. The left hip shows mild acetabular spurring. The joint space is maintained. The SI joints are unremarkable. DATA REPOSITORY: RADIATION DOSE DELIVERED:
== END 2023-10-17 15:47 | disposition home or self-care (01) ==
LOC: DIORS 15:47
PROVIDERS: PCP Nurse Practitioner Family; Visit Provider Student in an Organized Health Care Education/Training Program
DX: Z96.641 Presence of right artificial hip joint (principal); Z47.1 Aftercare following joint replacement surgery
CPT/HCPCS: 73502

== ENCOUNTER 2024-03-16 15:39 | Outpatient (CLI) | payer BC, SELFPAY ==
--- NOTE | 2024-03-16 09:15 | DI.RAD_ITS ---
Exam(s) XR KNEE LT 4V AP,LAT,JAE,PAT EXAM: XR KNEE LT 4V AP,LAT,JAE,PAT CLINICAL HISTORY: L leg pain. TECHNIQUE: 2D digital imaging was performed. COMPARISON: No exams were available for comparison FINDINGS: Four views No evidence fracture. Small amount of increased joint fluid. No joint space narrowing. No osteophy amy. No osteochondral defects. Bone density normal. No significant osseous lesions. IMPRESSION: No acute osseous findings in the knee. Small amount of increased joint fluid noted. DATA REPOSITORY: RADIATION DOSE DELIVERED:
--- NOTE | 2024-03-16 09:15 | DI.RAD_ITS ---
Exam(s) XR HIP LT AP LAT ONLY EXAM: XR HIP LT AP LAT ONLY CLINICAL HISTORY: L leg pain. TECHNIQUE: 2D digital imaging was performed. COMPARISON: CR XR HIP RT COMPLETE AP PELVIS from 10/17/2023 FINDINGS: Two views No evidence of fracture nor joint space narrowing. No evidence of vascular necrosis. Bone density n ormal. No osseous lesions. IMPRESSION: No significant osseous findings in the left hip. DATA REPOSITORY: RADIATION DOSE DELIVERED:
== END 2024-03-16 15:40 | disposition home or self-care (01) ==
LOC: DIORS 15:39
PROVIDERS: PCP Nurse Practitioner Family; Visit Provider Physician Assistant
DX: M79.605 Pain in left leg (principal)
CPT/HCPCS: 73502; 73564

== ENCOUNTER 2024-06-29 00:14 | Outpatient (CLI) | payer BC, SELFPAY ==
--- NOTE | 2024-06-29 07:45 | DI.MRI_ITS ---
Exam(s) MR LOWER JOINT LT WO EXAM: MR LOWER JOINT LT WO CLINICAL HISTORY: Ongoing post left knee pain, recurrent instability, xray negative,m25.562. TECHNIQUE: Multiplanar multisequence MRI was performed. COMPARISON: CR XR KNEE LT 4V AP,LAT,JAE,PAT from 03/16/2024 FINDINGS: BONES: Edema in the medial femoral condyle condyle consistent with contusion. Tiny degenerative cy st in the proximal tibia near the tibial spines. JOINTS: There is a small joint effusion is present. Articular cartilage: Patellofemoral joint: Articular cartilage is unremarkable. Medial femoral tibial joint: Articular cartilage is unremarkable. Lateral femoral tibial joint: Articular cartilage is unremarkable. LIGAMENTS/TENDONS: Anterior Cruciate: Unremarkable. Posterior Cruciate: Unremarkable. Medial Collateral:Unremarkable. Lateral Collateral ligament complex: Unremarkable. Extensor mechanism: Unremarkable. Medial retinaculum: Unremarkable. Lateral retinaculum: Unremarkable. Popliteus: Unremarkable. MENISCI: The medial meniscus is somewhat peripherally displaced and shows mild degenerative intrasubstance sig nal. No focal tear. No evidence of ligament or meniscal tear. The lateral meniscus is unremarkable. MUSCLES: Unremarkable. SOFT TISSUES: 5 centimeter Thakur's cyst. IMPRESSION: Bone contusion of the medial femoral condyle. 5 centimeter Thakur's cyst. DATA REPOSITORY:
== END 2024-06-29 00:34 ==
PROVIDERS: PCP Nurse Practitioner Family; Visit Provider Nurse Practitioner Family
DX: M23.52 Chronic instability of knee, left knee (principal); M25.562 Pain in left knee
CPT/HCPCS: 73721

== ENCOUNTER 2024-08-19 02:45 | Outpatient (CLI) | payer BC, SELFPAY ==
[2024-08-19 13:07] LABS: Anion Gap 6.3 mmol/L (3-11); BUN 14 mg/dL (7-18); CO2 29.7 mmol/L (21.0-32.0); CREATININE 0.7 mg/dL (0.55-1.02); Calcium 9.4 mg/dL (8.5-10.1); Chloride 98 mmol/L (98-107); Estimated GFR 98.95 (mL/min/1.73m2); Glucose 99 mg/dL (74-106); Potassium 4.3 mmol/L (3.5-5.1); Sodium 134 mmol/L (136-145)
== END 2024-08-19 02:46 | disposition home or self-care (01) ==
LOC: LBO 02:45
PROVIDERS: PCP Nurse Practitioner Family; Visit Provider Nurse Practitioner Family
DX: E22.2 Syndrome of inappropriate secretion of antidiuretic hormone (principal); Z23 Encounter for immunization; I42.8 Other cardiomyopathies; F33.9 Major depressive disorder, recurrent, unspecified; F41.1 Generalized anxiety disorder; S83.242A Other tear of medial meniscus, current injury, left knee, initial encounter
CPT/HCPCS: 36415; 80048

== ENCOUNTER 2024-10-05 08:38 | Outpatient (CLI) | payer BC, SELFPAY ==
--- NOTE | 2024-10-05 08:15 | DI.RAD_ITS ---
Exam(s) XR HIP RT AP LAT ONLY EXAM: XR HIP RT AP LAT ONLY CLINICAL HISTORY: ANNUAL F/U R KANDICE. TECHNIQUE: 2D digital imaging was performed. Two images were obtained. AP and lateral views were ob tained. COMPARISON: CR XR HIP RT COMPLETE AP PELVIS from 10/17/2023 FINDINGS: BONES: There are stable post operative changes of a right total hip arthroplasty present. No fractur e or dislocation. JOINTS: The orthopedic hardware is in good position. No evidence of hardware loosening. SOFT TISSUE: Normal. IMPRESSION: Stable right total hip arthroplasty. DATA REPOSITORY: RADIATION DOSE DELIVERED:
== END 2024-10-05 08:39 | disposition home or self-care (01) ==
LOC: DIORS 08:39
PROVIDERS: PCP Nurse Practitioner Family; Referring Provider Nurse Practitioner Family; Visit Provider Student in an Organized Health Care Education/Training Program
DX: Z96.641 Presence of right artificial hip joint (principal); Z47.1 Aftercare following joint replacement surgery
CPT/HCPCS: 99213; 73502